=== PATIENT | male | born 1975 | race Two or more races ===

== ENCOUNTER 2018-01-18 12:36 | Outpatient (CLI) | payer BC ==
--- NOTE | 2018-01-18 15:47 | Diagnostic Imaging Report ---
Clinical Indication: Abdominal pain Technique: Patient given oral contrast. IV administration nonionic contrast. Venous phase spiral acquisition obtained through the abdomen and pelvis. Multiplanar reconstructions were generated. Total dose length product 505.69 mGycm. CTDIvol(s) 10.38 mGy. Dose reduction achieved using automated exposure control Comparison: none Findings: The appendix is normal. It is partially filled with gas and contrast, is upper limits of normal in caliber, and there is no infiltration of the periappendiceal fat. No significant fecal retention demonstrated. No evidence of diverticulosis or diverticulitis. No small bowel distention. Contrast is seen to traverse the entirety of the small bowel and reaches the colon, seen as far distally as the mid descending colon. No free or loculated intraperitoneal air or fluid. Distal esophagus, stomach, duodenum are unremarkable. No renal or ureteral calculi, hydronephrosis, or hydroureter. Phleboliths are seen within the pelvis bilaterally. Tiny subcentimeter low-attenuation lesions are seen in the left kidney, too small to characterize, most likely benign simple cortical cysts. The liver, gallbladder, bile ducts, pancreas, spleen, adrenals, are unremarkable. No retroperitoneal or mesenteric mass or adenopathy. No pelvic mass or adenopathy. Normal-sized prostate The bones are unremarkable. The included lung bases are clear. Impression: Essentially unremarkable exam. No acute or significant abnormality demonstrated Subcentimeter low-attenuation left renal lesions, too small to characterize, most likely benign cortical cysts. No further follow-up necessary Findings previously discussed by phone with Dr. Giles The CT scanner at [facility] is accredited by the [employer] and the scans are performed using protocols designed to limit radiation exposure to as low as reasonably achievable to attain images of sufficient resolution adequate for diagnostic evaluation.
== END 2018-01-18 14:36 | disposition home or self-care (01) ==
LOC: CAT 12:36
DX: R10.9 Unspecified abdominal pain (principal)
CPT/HCPCS: 74177; Q9967